=== PATIENT | female | born 1965 | race Asian ===

== ENCOUNTER 2021-10-11 12:18 | Inpatient (IN) | payer MEDICAID, SELFPAY ==
[~2021-10-11] VITALS: Ht 167.6 cm; Wt 68.0 kg
[2021-10-11 12:20] VITALS: BP_SYST 151
--- NOTE | 2021-10-11 12:20 | NUR ---
Placed in room 8 . Placed on poultry processor, blood pressure machine and pulse oximeter. To gown for exam. Side rails up.
--- NOTE | 2021-10-11 12:22 | NUR ---
ER DR. BRENNAN AT THE BEDSIDE EXAMINING PT
--- NOTE | 2021-10-11 12:25 | NUR ---
[facility] DESAT[facility], TACHYCARDIC, FEVER 103 LAST NIGHT, CONTRACTED, G-TUBE IN PLACE, DIAPER IN PLACE, TRACH- BEING BAGGED UPON ARRIVAL. PT IS NONVERBAL, TRACKS WITH EYES AT TIMES. TACHYCARDIC IN 150S UPON ARRIVAL
[2021-10-11] MEDS ORDERED: VANCOMYCIN HCL 1,000 MG in NS 250 ML IV ONE (12:30)
[2021-10-11] MEDS ORDERED: PIPERACILLIN/TAZO 3.375 GM in NS 50 ML IV ONE (12:30)
--- NOTE | 2021-10-11 12:40 | NUR ---
RT Note: 1240 Increased PEEP to [address] Hussein. RN made aware. Pt tolerating change well. SpO2 slightly improved.
--- NOTE | 2021-10-11 12:42 | NUR ---
LAB AT THE BEDSIDE
[2021-10-11 13:04] LABS: BASOPHILS % (AUTO) 0.1 % (0.0-2.0); EOSINOPHILS % (AUTO) 0.1 % (0.0-4.0); HEMATOCRIT 25.8 % (36-48); HEMOGLOBIN 8.7 g/dL (12.0-16.0); LYMPHOCYTES % (AUTO) 9.3 % (20.5-51.5); MEAN CORPUSCULAR HEMOGLOBIN 29 pg (27-31); MEAN CORPUSCULAR HGB CONC 34 % (32-36); MEAN CORPUSCULAR VOLUME 87 fL (79.0-98.0); MONOCYTES # (AUTO) 0.3 K/uL (0.0-1.0); MONOCYTES % (AUTO) 2.6 % (1.7-9.3); NEUTROPHILS # (AUTO) 9.5 K/uL (1.8-7.7); NEUTROPHILS % (AUTO) 87.9 % (40.0-70.0); PLATELET COUNT (AUTO) 382 K/uL (130-430); RED BLOOD CELL COUNT(AUTO) 2.98 MIL/uL (4.2-6.2); RED CELL DISTRIBUTION WIDTH 14.5 % (9.0-15.0); WHITE BLOOD COUNT (AUTO) 10.9 K/uL (4.8-10.8)
--- NOTE | 2021-10-11 13:13 | NUR ---
# 22 gauge angiocath placed to L chest. Use of asceptic technique. Opsite placed over site. Blood return noted. Blood for lab drawn from site. Flushed with 10 cc of normal saline. No evidence of infiltration noted. Patient tolerated well.
[2021-10-11 13:22] LABS: CALCIUM 8.1 mg/dL (8.4-11.0); CREATININE 0.84 mg/dL (0.55-1.30); POTASSIUM 5.1 mmol/L (3.5-5.1)
[2021-10-11 13:27] LABS: ALBUMIN 2.4 g/dL (3.4-4.8); TOTAL BILIRUBIN 0.2 mg/dL (0.0-1.0)
[2021-10-11] MEDS ORDERED: NACL 0.9% 2,500 ML IV ONE (14:00)
--- NOTE | 2021-10-11 14:00 | NUR ---
Medication reconciliation completed with information provided by [facility]. Any prior medication reconciliation on file was reviewed and corrected.
--- NOTE | 2021-10-11 14:17 | NUR ---
# 16 FR Chand catheter with use of sterile technique. Immediate return of 30 cc CLEAR, YELLOW urine noted. Bedside drainage bag placed below level of bladder. Urine sample collected and sent to lab. Pt tolerated procedure WELL. Patient unable to toilet self.
[2021-10-11] MEDS ORDERED: LOSA100T3 GT (14:41)
[2021-10-11] MEDS ORDERED: FURO-150 GT (14:41)
[2021-10-11] MEDS ORDERED: POTA-197 GT (14:41)
[2021-10-11] MEDS ORDERED: GLYC2TAB21 GT (14:41)
[2021-10-11] MEDS ORDERED: ASA81 GT (14:41)
[2021-10-11] MEDS ORDERED: PHEN100O4 GT (14:41)
[2021-10-11] MEDS ORDERED: LEVE1000 GT (14:41)
[2021-10-11] MEDS ORDERED: ASCO500T20 GT (14:41)
[2021-10-11] MEDS ORDERED: MULT-976 GT (14:41)
[2021-10-11] MEDS ORDERED: METO25TA6 GT (14:41)
[2021-10-11] MEDS ORDERED: IPRA3AMP9 INH (14:41)
[2021-10-11] MEDS ORDERED: MELA3TAB69 GT (14:41)
[2021-10-11] MEDS ORDERED: ISOS20TA8 GT (14:41)
[2021-10-11] MEDS ORDERED: FER300L GT (14:41)
[2021-10-11] MEDS ORDERED: HYDR-4038 GT (14:41)
[2021-10-11] MEDS ORDERED: AMIN30LI2 GT (14:41)
[2021-10-11] MEDS ORDERED: NOR10 GT (14:41)
--- NOTE | 2021-10-11 14:46 | NUR ---
ADMISSION ORDERS RECEIVED FROM DR. VARGAS
[2021-10-11 15:09] LABS: BILIRUBIN,URINE NEGATIVE (NEGATIVE); BLOOD, URINE NEGATIVE (NEGATIVE); CLARITY/URINE CLEAR (CLEAR); COLOR,URINE YELLOW (YELLOW); GLUCOSE,URINE NEGATIVE (NEGATIVE); KETONES,URINE NEGATIVE (NEGATIVE); LEUKOCYTE ESTERASE ,URINE NEGATIVE (NEGATIVE); NITRITE, URINE NEGATIVE (NEGATIVE); PH,URINE 5.5 (5.0-8.0); PROTEIN URINE TRACE (NEGATIVE); UROBILINOGEN,URINE 0.2 (0.2-1.0)
[2021-10-11 15:25] LABS: BACTERIA,URINE FEW /HPF (None Seen); MUCUS,URINE None Seen /LPF (None Seen); RBC,URINE NONE SEEN /HPF (0-3); WBC,URINE 0-3 /HPF (0-3)
[2021-10-11 15:55] VITALS: BP_SYST 114
--- NOTE | 2021-10-11 15:56 | NUR ---
CONSULT CALLED CONSULT FOR DR ARTEAGA SPOKE WITH HERBERT [phone] MARES SPOKE WITH SHARON FAXED OVER FACESHEET TO [phone] CONSULT FOR DR PERDUE SPOKE WITH INGE [phone]
--- NOTE | 2021-10-11 17:00 | NUR ---
TYLENOL 500MG GTUBE ADMINISTERED PER DR. ARTEAGA ORDER. EMAR HAS NOT UPDATED AND POPULATED MEDICATIONS FOR CHARTING PURPOSES
[2021-10-11] MEDS ORDERED: ACETAMINOPHEN 500 MG TABLET ONE (17:04)
--- NOTE | 2021-10-11 18:30 | NUR ---
DR. PERDUE EXAMINING PT
--- NOTE | 2021-10-11 18:38 | NUR ---
SW DR. ARTEAGA REGARDING ABG RESULTS, T.O. ORDERS RECEIVED TO DECREASE TIDAL VOLUME TO 700. RT CALLED
[2021-10-11] MEDS ORDERED: LABETALOL 100 MG/ 20ML VIAL IVP PRN (19:00)
--- NOTE | 2021-10-11 19:10 | NUR ---
REPORT GIVEN TO FEROZ BLANTON FOR CONTINUING CARE
--- NOTE | 2021-10-11 20:00 | NUR ---
Pt remains in guarded condition, with Dx of Sepsis
--- NOTE | 2021-10-11 21:00 | NUR ---
Pt diapheretic, with temp at 99.2, IVF and IV antibiotics infusing
--- NOTE | 2021-10-11 21:00 | NUR ---
Pt repositioned for comfort and pressure relief
--- NOTE | 2021-10-11 22:08 | NUR ---
VS: 138/87, 112, 96
--- NOTE | 2021-10-12 | NUR ---
With family at bedside, VSS no s/s of acute distress, No change in vent settings
--- NOTE | 2021-10-12 01:00 | NUR ---
Pt repositioned for comfort and pressure relief
--- NOTE | 2021-10-12 02:00 | NUR ---
Pt responding well to IVF therapy, VSS no s/s of acute distress
--- NOTE | 2021-10-12 04:00 | NUR ---
Provided complete linen change, pericare, RT at bedside for trach care
--- NOTE | 2021-10-12 05:00 | NUR ---
Pt repositioned for comfort and pressure relief
[2021-10-12 05:41] VITALS: BP_SYST 118
--- NOTE | 2021-10-12 06:00 | NUR ---
Repositioned Pt for comfort and pressure relief
[2021-10-12 07:18] LABS: BASOPHILS % (AUTO) 0.1 % (0.0-2.0); HEMATOCRIT 22.9 % (36-48); HEMOGLOBIN 7.5 g/dL (12.0-16.0); LYMPHOCYTES # (AUTO) 1.3 K/uL (1.0-5.5); LYMPHOCYTES % (AUTO) 7.7 % (20.5-51.5); MEAN CORPUSCULAR HEMOGLOBIN 29 pg (27-31); MEAN CORPUSCULAR HGB CONC 33 % (32-36); MEAN CORPUSCULAR VOLUME 88 fL (79.0-98.0); MONOCYTES # (AUTO) 0.5 K/uL (0.0-1.0); MONOCYTES % (AUTO) 2.8 % (1.7-9.3); NEUTROPHILS # (AUTO) 14.6 K/uL (1.8-7.7); NEUTROPHILS % (AUTO) 89.4 % (40.0-70.0); PLATELET COUNT (AUTO) 311 K/uL (130-430); RED CELL DISTRIBUTION WIDTH 14.6 % (9.0-15.0); WHITE BLOOD COUNT (AUTO) 16.3 K/uL (4.8-10.8)
[2021-10-12 07:32] LABS: CALCIUM 7.7 mg/dL (8.4-11.0); CREATININE 0.81 mg/dL (0.55-1.30); POTASSIUM 4.2 mmol/L (3.5-5.1)
[2021-10-12] MEDS ORDERED: IPRATROPIUM/ALBUTEROL SULFATE 3 ML AMPUL.NEB (DUONEB) ONE (07:52)
[2021-10-12 07:54] LABS: THYROID STIMULATING HORMONE 0.51 uIu/mL (0.36-3.74); TOTAL BILIRUBIN 0.2 mg/dL (0.0-1.0)
[2021-10-12 07:55] VITALS: BP_SYST 159
--- NOTE | 2021-10-12 08:04 | NUR ---
56 years old female intubated/trach dependent biba for resp distress/hypoxia, awaiting for icu bed remains tachy, tachypneic will continue to monitor.
[2021-10-12] MEDS: NACL 0.9% 1,000 ML IV SCH ×3 (09:14→23:56)
[2021-10-12] MEDS: VANCOMYCIN HCL 750 MG in NS 250 ML IV SCH ×2 (09:14→21:42)
[2021-10-12] MEDS: DEXAMETHASONE SOD PHOSPHATE 10 MG/ML VIAL IVP SCH ×2 (09:15→21:43)
[2021-10-12] MEDS: PANTOPRAZOLE SODIUM 40 MG/VIAL (PROTONIX) IVP SCH (09:16)
[2021-10-12] MEDS: ENOXAPARIN SODIUM 60 MG/0.6 ML SYRINGE SUBCUT SCH (09:17)
[2021-10-12] MEDS: ACETAMINOPHEN 500 MG TABLET GT PRN ×2 (09:19→17:53)
[2021-10-12] MEDS ORDERED: NACL 0.9% 1,000 ML IV ONE (09:45)
[2021-10-12] MEDS ORDERED: KETOROLAC TROMETHAMINE 15 MG VIAL IVP ONE (09:45)
[2021-10-12] MEDS ORDERED: ACETAMINOPHEN 650 MG SUPP.RECT RC PRN (09:45)
[2021-10-12] MEDS: PIPERACILLIN/TAZO 3.375/DEX-IS 50 ML IV SCH ×3 (10:07→22:00)
--- NOTE | 2021-10-12 10:33 | NUR ---
patient tachypneic 47, RT notified, pulmonary paged.
--- NOTE | 2021-10-12 10:43 | NUR ---
talked to Dr Lima new order ativan 1mg IVP every 2 hrs PRN.
[2021-10-12] MEDS: LORazepam 2 MG/ML VIAL IVP PRN ×2 (11:12→17:33)
[2021-10-12 11:23] VITALS: BP_SYST 140
[2021-10-12] MEDS: IPRATROPIUM/ALBUTEROL SULFATE 3 ML AMPUL.NEB (DUONEB) INH SCH ×4 (11:25→23:54)
--- NOTE | 2021-10-12 11:25 | NUR ---
RT NOTE: 1125 decreased FiO2 to 90%. Pt tolerating change well. SpO2 is above 95%. Will continue to wean FiO2 as pt tolerated.
--- NOTE | 2021-10-12 12:46 | NUR ---
PATIENT RESTING KATERIN, RR RATE IMPROVED AFTER IV ATIVAN, 28-36, WILL CONTINUE TO MONITOR.
[2021-10-12] MEDS ORDERED: IOHEXOL 350 mgI/mL, 150 ML INFUS..BTL IV ONE (14:21)
[2021-10-12 14:50] VITALS: BP_SYST 146
--- NOTE | 2021-10-12 14:55 | NUR ---
PATIENT RETURNS TO ROOM FROM CT IN STABLE CONDITION.
--- NOTE | 2021-10-12 17:46 | NUR ---
patient resting, tachypneic in 40's, ativan 1mg ivp given will continue to monitor.
--- NOTE | 2021-10-12 19:14 | NUR ---
report endorsed to nurse Hernández all questions answered.
[2021-10-12 19:54] VITALS: BP_SYST 138
[2021-10-12] MEDS ORDERED: DOXYCYCLINE HYCLATE 100 MG CAPSULE ONE (20:28)
[2021-10-12] MEDS ORDERED: VANCOMYCIN HCL 1000 MG/VIAL IV ONE (20:53)
--- NOTE | 2021-10-12 21:41 | NUR ---
TEMP 102.9. VORB FROM DR. Cristal MARES FOR 600 MG MOTRIN X1
[2021-10-12] MEDS: DOXYCYCLINE HYCLATE 100 MG CAPSULE PO SCH (21:43)
[2021-10-12] MEDS ORDERED: IBUPROFEN 600 MG TABLET GT ONE (21:45)
--- NOTE | 2021-10-12 22:12 | NUR ---
FAMILY UPDATED ON POC
[2021-10-12 23:00] VITALS: BP_SYST 143
[2021-10-13] VITALS (9 sets, daily range): BP systolic 144–172
--- NOTE | 2021-10-13 02:32 | NUR ---
PT MEDICATED WITH TYLENOL ORDERED FOR TEMP 102.9
[2021-10-13] MEDS: IPRATROPIUM/ALBUTEROL SULFATE 3 ML AMPUL.NEB (DUONEB) INH SCH ×6 (06:27→23:00)
--- NOTE | 2021-10-13 07:27 | NUR ---
REPORT GIVEN TO DAY SHIFT RN
--- NOTE | 2021-10-13 07:42 | NUR ---
56 years old female vent dependent with sob/resp distress,febrile condition improved, non verbal, unable to follow simple commands, contracted skin intact will continue to monitor.
[2021-10-13] MEDS: NACL 0.9% 1,000 ML IV SCH ×2 (09:54→16:30)
[2021-10-13] MEDS: VANCOMYCIN HCL 750 MG in NS 250 ML IV SCH ×2 (09:57→20:56)
[2021-10-13] MEDS: PIPERACILLIN/TAZO 3.375/DEX-IS 50 ML IV SCH ×3 (10:00→22:35)
[2021-10-13] MEDS: DEXAMETHASONE SOD PHOSPHATE 10 MG/ML VIAL IVP SCH (10:03)
[2021-10-13] MEDS: PANTOPRAZOLE SODIUM 40 MG/VIAL (PROTONIX) IVP SCH (10:05)
[2021-10-13] MEDS: DOXYCYCLINE HYCLATE 100 MG CAPSULE PO SCH (10:06)
[2021-10-13] MEDS: ENOXAPARIN SODIUM 60 MG/0.6 ML SYRINGE SUBCUT SCH (10:07)
--- NOTE | 2021-10-13 12:09 | NUR ---
patient condition unchanged vital stable, repositioned, skin care given, mouth care provided.
[2021-10-13 15:10] LABS: BASOPHILS % (AUTO) 0.1 % (0.0-2.0); LYMPHOCYTES # (AUTO) 0.5 K/uL (1.0-5.5); LYMPHOCYTES % (AUTO) 4.6 % (20.5-51.5); MEAN CORPUSCULAR HEMOGLOBIN 29 pg (27-31); MEAN CORPUSCULAR HGB CONC 35 % (32-36); MEAN CORPUSCULAR VOLUME 85 fL (79.0-98.0); MONOCYTES # (AUTO) 0.2 K/uL (0.0-1.0); MONOCYTES % (AUTO) 1.5 % (1.7-9.3); NEUTROPHILS # (AUTO) 10.4 K/uL (1.8-7.7); NEUTROPHILS % (AUTO) 93.8 % (40.0-70.0); PLATELET COUNT (AUTO) 344 K/uL (130-430); RED BLOOD CELL COUNT(AUTO) 2.31 MIL/uL (4.2-6.2); RED CELL DISTRIBUTION WIDTH 14.3 % (9.0-15.0)
[2021-10-13 15:35] LABS: HEMATOCRIT 19.6 % (36-48); HEMOGLOBIN 6.8 g/dL (12.0-16.0)
[2021-10-13 15:38] LABS: ALBUMIN 1.7 g/dL (3.4-4.8); CALCIUM 7.8 mg/dL (8.4-11.0); CREATININE 0.91 mg/dL (0.55-1.30); POTASSIUM 3.2 mmol/L (3.5-5.1); TOTAL BILIRUBIN 0.3 mg/dL (0.0-1.0)
--- NOTE | 2021-10-13 15:49 | NUR ---
patient with critical lab Dr Solis notified new order 1/2 normal saline at 150ml/hr, type and cross and transfuse 2 units packed red blood cell.
[2021-10-13] MEDS: 0.45% NACL 1,000 ML IV SCH ×3 (17:30→22:34)
--- NOTE | 2021-10-13 18:01 | NUR ---
patient reassess no acute changes, talked to brother Yuriy Rogers for blood consent.
--- NOTE | 2021-10-13 19:25 | NUR ---
Patient will be admitted to care of Tania. Admitted to unit. Will go to room . Complete and up to date summary report printed. SBAR report to be given at bedside with opportunity for questions.
--- NOTE | 2021-10-13 22:30 | NUR ---
Patient confused, aphasic on vent via trach set @ PC 15, Rate 24 F1O2 100% w/ C2Eim=[address] on the scope w/ T=101.9 deg. F. Tylenol adm via GT; cooling measures initiated. Admission history and assessment done. Repositioned for comfort. Contracted an. Upper & Lower extremities. Will cont to monitor.
[2021-10-13] MEDS: ACETAMINOPHEN 500 MG TABLET GT PRN (23:05)
[2021-10-14] VITALS (26 sets, daily range): BP systolic 126–166
[2021-10-14] MEDS: NACL 0.9% 1,000 ML IV SCH (00:30)
--- NOTE | 2021-10-14 00:30 | NUR ---
Dr. Solis made aware of K=3.1 and fever w/ new orders noted. Tylenol per GT & K+ suplementation ordered by ; noted and carried out. made aware that unable to start transfusing PRBC unit 1 until pt. afebrile. Will cont. to monitor.
[2021-10-14] MEDS ORDERED: POTASSIUM CHLORIDE 40 MEQ in D5W 250 ML IV ONE (01:15)
[2021-10-14] MEDS ORDERED: DOXYCYCLINE HYCLATE 100 MG CAPSULE ONE ×2 (01:29→21:38)
[2021-10-14] MEDS: DOXYCYCLINE HYCLATE 100 MG CAPSULE PO SCH ×3 (02:12→21:52)
[2021-10-14] MEDS ORDERED: POTASSIUM CHLORIDE 20 MEQ TAB.PRT.SR PO ONE (02:15)
[2021-10-14] MEDS ORDERED: POTASSIUM CHLORIDE 20 MEQ TAB.PRT.SR ONE (02:16)
[2021-10-14] MEDS: ACETAMINOPHEN 650 MG/20.3 ML UDC GT PRN ×3 (04:05→17:22)
[2021-10-14] MEDS: PIPERACILLIN/TAZO 3.375/DEX-IS 50 ML IV SCH ×4 (04:06→22:00)
[2021-10-14] MEDS: IPRATROPIUM/ALBUTEROL SULFATE 3 ML AMPUL.NEB (DUONEB) INH SCH ×4 (04:20→23:00)
--- NOTE | 2021-10-14 06:45 | NUR ---
RAPID RESPONSE CALLED BY RN. PT'S HR 150 SPO2 IN 50s RR IN 40s. IMMEDIATELY BAGGED PATIENT. PT'S SPO2 INCREASED TO 80s. ABG OBTAINED AND RESULTS GIVEN TO MD ARTEAGA BY RN. NO NEW ORDERS FOR RESPIRATORY. RR INCREASED TO 24 FOR SOB. PT ON 100% FIO2 AND PEEP OF 10. MD ARTEAGA AWARE OF PATIENT'S CONDITION. WILL CONTINUE TO MONITOR.
[2021-10-14] MEDS ORDERED: FUROSEMIDE 40 MG/4 ML VIAL ONE (06:51)
[2021-10-14] MEDS ORDERED: FUROSEMIDE 40 MG/4 ML VIAL IVP ONE (07:00)
[2021-10-14] MEDS: LORazepam 2 MG/ML VIAL IVP PRN ×3 (07:32→17:34)
[2021-10-14] MEDS ORDERED: SODIUM BICARBONATE 8.4% JECT 50 MEQ/50 ML SYRINGE IVP ONE (07:45)
[2021-10-14 07:51] LABS: BASOPHILS # (AUTO) 0.1 K/uL (0.0-0.2); BASOPHILS % (AUTO) 0.3 % (0.0-2.0); HEMATOCRIT 26.2 % (36-48); HEMOGLOBIN 8.9 g/dL (12.0-16.0); LYMPHOCYTES # (AUTO) 1.9 K/uL (1.0-5.5); LYMPHOCYTES % (AUTO) 8.7 % (20.5-51.5); MEAN CORPUSCULAR HEMOGLOBIN 29 pg (27-31); MEAN CORPUSCULAR HGB CONC 34 % (32-36); MEAN CORPUSCULAR VOLUME 85 fL (79.0-98.0); MONOCYTES # (AUTO) 0.3 K/uL (0.0-1.0); MONOCYTES % (AUTO) 1.6 % (1.7-9.3); NEUTROPHILS # (AUTO) 19.1 K/uL (1.8-7.7); NEUTROPHILS % (AUTO) 89.4 % (40.0-70.0); PLATELET COUNT (AUTO) 422 K/uL (130-430); RED CELL DISTRIBUTION WIDTH 15.2 % (9.0-15.0); WHITE BLOOD COUNT (AUTO) 21.4 K/uL (4.8-10.8)
--- NOTE | 2021-10-14 08:00 | NUR ---
INITIAL NOTES RECEIVED REPORT FROM NIGHT NURSE AT BEDSIDE, ER DOCTOR AND RESPIRATORY THERAPIST AT BEDSIDE ASSESSING PATIENT. PATIENT 02 SAT AT 86% ON 100% FIO2, PATIENT HAS TRACH TO VENT. AFEBRILE, GT CLAMPED, IVL AT THIS TIME. MAINTAIN ON CONTACT/DROPLET ISOLATION FOR PUI STATUS. WILL MONITOR.
--- NOTE | 2021-10-14 08:00 | NUR ---
After transfusion of 1st unit of blood, @ 0640, O2Sat noted to be in the 50s & the patient was cyanotic and obtunded w/ VI=982b. GOLF CLUB MANAGER called and patient bagged to 82% by RT. Dr. Solis contacted and made aware of patient condition and ordered Lasix 40 mg IVP. ABG done. Results relayed to Dr. Lima w/ 2 amps NaHCO3, for ph=7.1. Chest Xray done; film read by ER MD. Stat labs drawn w/ results pending. Ativan adm. IVP x [address] on the scope in the 120s to 130s w/ [id number] when report given to Tiffany Woodard RN. Care endorsed.
[2021-10-14 08:23] LABS: PHOSPHORUS 3.8 mg/dL (2.7-4.5)
[2021-10-14 08:28] LABS: ALBUMIN 1.7 g/dL (3.4-4.8); CALCIUM 7.7 mg/dL (8.4-11.0); CREATININE 1.04 mg/dL (0.55-1.30); POTASSIUM 3.5 mmol/L (3.5-5.1); TOTAL BILIRUBIN 0.6 mg/dL (0.0-1.0)
[2021-10-14] MEDS: PANTOPRAZOLE SODIUM 40 MG/VIAL (PROTONIX) IVP SCH (09:22)
[2021-10-14] MEDS: DEXAMETHASONE SOD PHOSPHATE 10 MG/ML VIAL IVP SCH (09:22)
[2021-10-14] MEDS: VANCOMYCIN HCL 750 MG in NS 250 ML IV SCH ×2 (09:23→21:52)
--- NOTE | 2021-10-14 10:07 | NUR ---
Dietitian Recommendations *Recommend: initiate EN via NGT. Vital AF 1.2 at 60ml/hr (goal rate). FABY, RD
--- NOTE | 2021-10-14 11:00 | NUR ---
NOTES PATIENT STABLE SO FAR, O2 SAT AT 95%, NO DISTRESS. WILL MONITOR.
[2021-10-14] MEDS: ENOXAPARIN SODIUM 60 MG/0.6 ML SYRINGE SUBCUT SCH (11:02)
[2021-10-14 12:35] LABS: C-REACTIVE PROTEIN QUANT 16.7 mg/dL (0-0.5)
--- NOTE | 2021-10-14 13:34 | NUR ---
TEMP -Has low grade fever of 99.9. tylenol given
[2021-10-14] MEDS: 0.45% NACL 1,000 ML IV SCH ×2 (14:14→20:10)
--- NOTE | 2021-10-14 17:38 | NUR ---
MD ROUNDS/FEEDING SEEN BY DR. VARGAS AND AWARE OF LABS. STATED ALSO TO KEEP NPO AND START FEEDING TOMORROW.
[2021-10-15] VITALS (23 sets, daily range): BP systolic 96–176
[2021-10-15] MEDS: LORazepam 2 MG/ML VIAL IVP PRN ×2 (01:37→03:46)
[2021-10-15] MEDS: IPRATROPIUM/ALBUTEROL SULFATE 3 ML AMPUL.NEB (DUONEB) INH SCH ×2 (02:31→23:02)
[2021-10-15] MEDS: PIPERACILLIN/TAZO 3.375/DEX-IS 50 ML IV SCH ×3 (04:00→16:17)
--- NOTE | 2021-10-15 04:58 | NUR ---
Nutrition Update Nathan Scale 12 noted. Pt admitted for Respiratory failure, Sepsis Diet: no diet order BMI: 24.2 kg/m2 RD to follow per nutrition care standards.
[2021-10-15 06:51] LABS: BASOPHILS % (AUTO) 0.3 % (0.0-2.0); HEMATOCRIT 29.8 % (36-48); HEMOGLOBIN 9.8 g/dL (12.0-16.0); LYMPHOCYTES # (AUTO) 1.1 K/uL (1.0-5.5); LYMPHOCYTES % (AUTO) 7.4 % (20.5-51.5); MEAN CORPUSCULAR HEMOGLOBIN 29 pg (27-31); MEAN CORPUSCULAR HGB CONC 33 % (32-36); MEAN CORPUSCULAR VOLUME 87 fL (79.0-98.0); MONOCYTES # (AUTO) 0.3 K/uL (0.0-1.0); MONOCYTES % (AUTO) 1.9 % (1.7-9.3); NEUTROPHILS # (AUTO) 13.2 K/uL (1.8-7.7); NEUTROPHILS % (AUTO) 90.4 % (40.0-70.0); PLATELET COUNT (AUTO) 456 K/uL (130-430); RED BLOOD CELL COUNT(AUTO) 3.41 MIL/uL (4.2-6.2); RED CELL DISTRIBUTION WIDTH 15.8 % (9.0-15.0); WHITE BLOOD COUNT (AUTO) 14.6 K/uL (4.8-10.8)
[2021-10-15] MEDS: 0.45% NACL 1,000 ML IV SCH ×3 (07:00→16:17)
[2021-10-15 07:08] LABS: ALBUMIN 1.7 g/dL (3.4-4.8); CALCIUM 7.8 mg/dL (8.4-11.0); CREATININE 1.13 mg/dL (0.55-1.30); POTASSIUM 3.8 mmol/L (3.5-5.1); TOTAL BILIRUBIN 0.2 mg/dL (0.0-1.0)
--- NOTE | 2021-10-15 07:15 | NUR ---
found pt had difficulty breathing even though on a vent via trach hr in the 100's rr in 40's - 50's pt appears air starving made charge nurse aware called dr polanco was told pt was in a coma state no new orders given
[2021-10-15 07:44] LABS: C-REACTIVE PROTEIN QUANT 17.2 mg/dL (0-0.5)
--- NOTE | 2021-10-15 08:00 | NUR ---
Spoke with Dr. Lima regarding pts resp distress, RR 50's 02 sats 80's and air hunger. Orders left for diprivan but he declined to order any other sedation. Bedside RN made aware.
[2021-10-15] MEDS: VANCOMYCIN HCL 750 MG in NS 250 ML IV SCH ×2 (10:06→22:02)
[2021-10-15] MEDS: ENOXAPARIN SODIUM 60 MG/0.6 ML SYRINGE SUBCUT SCH (10:10)
[2021-10-15] MEDS: PANTOPRAZOLE SODIUM 40 MG/VIAL (PROTONIX) IVP SCH (10:11)
[2021-10-15] MEDS: DEXAMETHASONE SOD PHOSPHATE 10 MG/ML VIAL IVP SCH (10:11)
[2021-10-15] MEDS: DOXYCYCLINE HYCLATE 100 MG CAPSULE PO SCH ×2 (10:12→21:00)
--- NOTE | 2021-10-15 11:00 | NUR ---
Spoke with Dr. Lima again regarding abg results. He requested to speak with RT and did so. I also spoke with him again regarding sedation. He ordered precedex in addition to the diprivan. Pharmacy does not recommend both.
--- NOTE | 2021-10-15 14:00 | NUR ---
dr polanco made of aware of abg's drawn at 1339 no new orders noted pt was placed on Diprivan drip earlier with some effect condition improved with Ativan ivp prn
[2021-10-15] MEDS: PROPOFOL DRIP 100 ML IV PRN (22:12)
[2021-10-16] VITALS (23 sets, daily range): BP systolic 109–139
[2021-10-16] MEDS: PIPERACILLIN/TAZO 3.375/DEX-IS 50 ML IV SCH ×2 (00:04→05:06)
[2021-10-16] MEDS: 0.45% NACL 1,000 ML IV SCH ×8 (00:07→21:00)
[2021-10-16] MEDS: IPRATROPIUM/ALBUTEROL SULFATE 3 ML AMPUL.NEB (DUONEB) INH SCH ×4 (03:36→16:30)
[2021-10-16] MEDS: PROPOFOL DRIP 100 ML IV PRN ×5 (05:13→22:42)
--- NOTE | 2021-10-16 07:30 | NUR ---
PT GUSTING FOR AIR RT CALLED. OFFGOING NURSE STATED PT HAS BEEN LIKE THAT ALL SHIFT ASKED IF SHE CALLED DR DEY STATED NO BECAUSE RT TOLD HER HE WAS AWARED HE PLACED A SMALLER TRACH TUBE IN AT THE BEGINNING OF THE SHIFT. PT PLACED IN A 90 DEGREE POSITION RT AT BESIDE AWAITING FOR ABG'S RESULT HR IN THE 80 RR IN THE 30'S WAS GIVING ATIVAN 1MG IIVP COMFORT AND SAFTEY MAINTAINED CHARGE NURSE MADE AWARE Addendum: 10/16/21 at 1104 by [employer] tailor fitter WRONG PT
[2021-10-16 08:26] LABS: BASOPHILS % (AUTO) 0.2 % (0.0-2.0); EOSINOPHILS % (AUTO) 0.1 % (0.0-4.0); HEMOGLOBIN 7.7 g/dL (12.0-16.0); LYMPHOCYTES # (AUTO) 0.4 K/uL (1.0-5.5); LYMPHOCYTES % (AUTO) 4.1 % (20.5-51.5); MEAN CORPUSCULAR HEMOGLOBIN 29 pg (27-31); MEAN CORPUSCULAR HGB CONC 33 % (32-36); MEAN CORPUSCULAR VOLUME 86 fL (79.0-98.0); MONOCYTES # (AUTO) 0.2 K/uL (0.0-1.0); MONOCYTES % (AUTO) 2.3 % (1.7-9.3); NEUTROPHILS # (AUTO) 9.6 K/uL (1.8-7.7); NEUTROPHILS % (AUTO) 93.3 % (40.0-70.0); PLATELET COUNT (AUTO) 362 K/uL (130-430); RED BLOOD CELL COUNT(AUTO) 2.68 MIL/uL (4.2-6.2); RED CELL DISTRIBUTION WIDTH 15.2 % (9.0-15.0); WHITE BLOOD COUNT (AUTO) 10.2 K/uL (4.8-10.8)
[2021-10-16 08:34] LABS: CALCIUM 7.3 mg/dL (8.4-11.0); CREATININE 1.81 mg/dL (0.55-1.30); POTASSIUM 3.1 mmol/L (3.5-5.1)
[2021-10-16] MEDS: PANTOPRAZOLE SODIUM 40 MG/VIAL (PROTONIX) IVP SCH (08:58)
[2021-10-16] MEDS: DEXAMETHASONE SOD PHOSPHATE 10 MG/ML VIAL IVP SCH (08:58)
[2021-10-16] MEDS: ENOXAPARIN SODIUM 60 MG/0.6 ML SYRINGE SUBCUT SCH (09:01)
[2021-10-16] MEDS: cefTRIAXone 1 GM in D5W 50 ML IV SCH (09:02)
--- NOTE | 2021-10-16 09:30 | NUR ---
LAB CALLED PT IS COVID [address] POSIT[address] PER CHARGE NURSE[address] VARGAS WAS NOTIFIED
--- NOTE | 2021-10-16 10:00 | NUR ---
DR ARTEAGA CALLED TIMES THREE NO RETURN CALL R/T ABNOR BLOOD GAS CHARGE NURSE IS AWARE
--- NOTE | 2021-10-16 12:25 | NUR ---
DR ARTEAGA WAS MADE AWARE OF PT ABNORM ABG'S AND PRESENT CONDITION NO ACUTE DISTRESS NOTED REMAINS ON DIPRIVAN DRIP ORDER NO NEW ORDERS NOTED
[2021-10-16] MEDS: LORazepam 2 MG/ML VIAL IVP PRN (15:00)
--- NOTE | 2021-10-16 18:00 | NUR ---
PT HAD A LGE WATERY DK GREEN STOOL INCONT CARE GIVEN PLEASE NOTE PT DOES HAVE A DECUB ON HER RIGHT ANKLE WHICH WAS PRESENT DURING ADMISSION AWAITING FOR AN ORDER FOR TREATMENT NO DRAINAGE NOTED BUT APPLIED A 4X4 DRESSING
--- NOTE | 2021-10-16 19:04 | NUR ---
REPORT GIVEN TO INCOMING NURSE ALL QUESTIONS ANSWERED PT CONDITION APPEARS STABLE AT THIS TIME
[2021-10-17] VITALS (20 sets, daily range): BP systolic 100–147
[2021-10-17] MEDS ORDERED: POTASSIUM CHLORIDE 20 MEQ/PKT PACKET PO ONE (02:00)
[2021-10-17] MEDS: PROPOFOL DRIP 100 ML IV PRN ×2 (02:52→07:50)
[2021-10-17 07:48] LABS: BASOPHILS % (AUTO) 0.2 % (0.0-2.0); EOSINOPHILS % (AUTO) 0.1 % (0.0-4.0); HEMATOCRIT 22.9 % (36-48); HEMOGLOBIN 7.5 g/dL (12.0-16.0); LYMPHOCYTES # (AUTO) 0.6 K/uL (1.0-5.5); LYMPHOCYTES % (AUTO) 4.5 % (20.5-51.5); MEAN CORPUSCULAR HEMOGLOBIN 28 pg (27-31); MEAN CORPUSCULAR HGB CONC 33 % (32-36); MEAN CORPUSCULAR VOLUME 86 fL (79.0-98.0); MONOCYTES # (AUTO) 0.4 K/uL (0.0-1.0); MONOCYTES % (AUTO) 2.8 % (1.7-9.3); NEUTROPHILS # (AUTO) 12.5 K/uL (1.8-7.7); NEUTROPHILS % (AUTO) 92.4 % (40.0-70.0); PLATELET COUNT (AUTO) 373 K/uL (130-430); RED BLOOD CELL COUNT(AUTO) 2.65 MIL/uL (4.2-6.2); RED CELL DISTRIBUTION WIDTH 14.9 % (9.0-15.0); WHITE BLOOD COUNT (AUTO) 13.5 K/uL (4.8-10.8)
[2021-10-17] MEDS: LORazepam 2 MG/ML VIAL IVP PRN (07:55)
[2021-10-17 08:03] LABS: ALBUMIN 1.5 g/dL (3.4-4.8); CALCIUM 7.5 mg/dL (8.4-11.0); CREATININE 1.99 mg/dL (0.55-1.30); TOTAL BILIRUBIN 0.4 mg/dL (0.0-1.0)
[2021-10-17] MEDS ORDERED: KCL 40 mEq in 100 mL (PREMIX) 100 ML IV ONE (08:45)
[2021-10-17] MEDS ORDERED: NS 500 ML IV ONE (08:45)
[2021-10-17] MEDS: cefTRIAXone 1 GM in D5W 50 ML IV SCH (08:53)
[2021-10-17] MEDS: PANTOPRAZOLE SODIUM 40 MG/VIAL (PROTONIX) IVP SCH (08:54)
[2021-10-17] MEDS: DEXAMETHASONE SOD PHOSPHATE 10 MG/ML VIAL IVP SCH (08:54)
[2021-10-17] MEDS: ENOXAPARIN SODIUM 60 MG/0.6 ML SYRINGE SUBCUT SCH (08:56)
--- NOTE | 2021-10-17 09:00 | NUR ---
K LEVEL 3 DR WAS CALLED NEW ORDER REC'D 40 MEQ KCL IV
[2021-10-17] MEDS: IPRATROPIUM/ALBUTEROL SULFATE 3 ML AMPUL.NEB (DUONEB) INH SCH ×5 (09:10→23:54)
--- NOTE | 2021-10-17 11:00 | NUR ---
RT NOTE: 1100 Increased PEEp to [address] Lima's order. Will continue to monitor pt. Addendum: 10/17/21 at 1157 by Karina Huerta RT Amended: Links added.
--- NOTE | 2021-10-17 11:00 | NUR ---
PEEP LEVEL CHANGE TO [address] ORDER WILL CONT TO MONITOR PT
[2021-10-17] MEDS: 0.45% NACL 1,000 ML IV SCH (13:30)
--- NOTE | 2021-10-17 16:30 | NUR ---
WOUND EVALUATION: Late note for 1630 secondary to patient care. Wound Consult received from Dr. Solis. Thank you, Dr. Solis, for the consult. Patient received in bed, awake, nonresponsive to verbal commands. Patient is unable to turn independently. Nathan Score is an 8. Past Medical History: CHF, Hypertension, history of strokes, Tracheostomy with mechanical ventilation, history of possible Anoxic Encephalopathy. Recent Labs: WBC 13.5, RBC 2.65, hemoglobin 7.5, hematocrit 22.9, sodium 151, potassium 3.0, chloride 117, BUN 46, creatinine 1.99, GFR 27, glucose 141, calcium 7.5, AST 46, C-reactive protein 17.2, serum total protein 5.0, albumin 1.5, D-dimer 1770. Microbiology: Blood culture results x2 negative. Urine culture results negative. MRSA screen results in progress. Endotracheal sputum culture results positive for Proteus Mirabilis. Intrinsic factors that delay wound healing: Anoxic Encephalopathy, severe Hypoalbuminemia, Hyperglycemia. Extrinsic factors that delay wound healing: Immobility. Wound Assessment: 1. Right Buttock: sDTI, present on admission. Wound bed has 80% dark discolored tissue, 5% red tissue, 5% pink tissue. No odor, no drainage. Nahum-wound intact. Measures 4.0 cm x 3.7 cm. Recommend: Cleanse wound with normal saline. Apply Calmoseptine cream to nahum-wound. Apply Venelex ointment to red and pink wound bed areas only, not dark discolored areas. Cover with foam dressing. Perform wound care daily, and as needed for dressing soiling or dislodgement. 2. Intergluteal Sulcus: Intertrigo with erythema and MASD. Erythema with moisture associated skin damage, with scant sanguineous drainage. No odor. Site measures 1.5 cm x 0.4 cm. Recommend: Cleanse site with normal saline. Apply Calmoseptine cream to site. Cover with foam dressing, pushing dressing into sulcus area with fingers, then spreading dressing out along sacral area while holding fingers in place. Perform site care daily, and as needed for dressing soiling or dislodgement. 3. Right Lateral Malleolus: Unstageable pressure ulcer. Wound bed has 90% yellow tissue, 10% pink tissue. No odor, no drainage. Periwound intact. Wound measures 2.3 cm x 0.3 cm. Recommend: Cleanse wound with normal saline. Apply Calmoseptine cream to nahum-wound. Apply Venelex ointment to wound bed. Cover with foam dressing. Perform wound care daily, and as needed for dressing soiling or dislodgement. 4. Left Lateral Foot near 5th Metatarsal Head: Area of dark discoloration with brown scaly skin, present on admission, possibly old ulcer site of unknown stage. Recommend: Wyocena site with Betadine. Allow to air dry. Cover site with foam dressing for protection. Perform site care daily, and as needed for dressing soiling or dislodgment. Also recommend: Reposition patient side to side every 2 hours with one pillow underneath left pelvis and 1 pillow underneath right pelvis (facilitate turning by placing 1 additional pillow underneath left pelvis for 2 hours, then rotate pillow underneath right pelvis for 2 hours, repeating every 2 hours. Off-load pressure areas with pillows for pressure re-distribution. Offload, elevate and float bilateral heels with pillows. Perform skin care and monitor skin integrity Q shift. Use Calmoseptine cream on buttocks and other moisture susceptible areas QID and as needed for soiling. Place patient on a low air-loss mattress.
[2021-10-17] MEDS ORDERED: MENTHOL/ZINC OXIDE 113 GM OINT. TP PRN (18:30)
[2021-10-18] VITALS (22 sets, daily range): BP systolic 94–165
[2021-10-18] MEDS: LORazepam 2 MG/ML VIAL IVP PRN ×3 (02:49→12:08)
[2021-10-18] MEDS: IPRATROPIUM/ALBUTEROL SULFATE 3 ML AMPUL.NEB (DUONEB) INH SCH ×6 (05:12→23:00)
[2021-10-18] MEDS: PROPOFOL DRIP 100 ML IV PRN (08:19)
[2021-10-18] MEDS: cefTRIAXone 1 GM in D5W 50 ML IV SCH (09:18)
[2021-10-18] MEDS: DEXAMETHASONE SOD PHOSPHATE 10 MG/ML VIAL IVP SCH (09:19)
[2021-10-18] MEDS: PANTOPRAZOLE SODIUM 40 MG/VIAL (PROTONIX) IVP SCH (09:19)
[2021-10-18] MEDS: BALSAM PERU/CASTOR OIL 56.7 GM OINT...G. TP SCH (09:20)
[2021-10-18] MEDS: ENOXAPARIN SODIUM 60 MG/0.6 ML SYRINGE SUBCUT SCH (09:20)
--- NOTE | 2021-10-18 09:30 | NUR ---
CALL DR ARTEAGA R/T PT ABNORMAL BLOOD GASES NO NEW ORDERS NOTED ALSO PT'S SAT WAS DOWN IN THE 80'S RT NOTIFIED ALSO
[2021-10-18] MEDS: ACETAMINOPHEN 650 MG/20.3 ML UDC GT PRN (10:39)
--- NOTE | 2021-10-18 11:04 | NUR ---
Nutrition F/U Admitting Diagnosis Respiratory Failure, Sepsis Reviewed Pertinent Medical/Surgical Hx Medical Record Medical History Comment: Bilateral Infiltrate consistent w/ COVID pneumonia, Leukocytosis, CHF, HTN, Hx of stroke, Trach w/ mechanical vent, Anoxic encephalopathy per MD notes. SARS-CoV-2 Ag (Rapid) Negative 10/11, (PCR) Positive 10/12; unvaccinated Subjective Information Late note d/t high RD load yesterday. RD rounded to ICU and spoke w/ pt's primary RN outside of pt's room (129) yesterday afternoon. She reported that pt has a GT and is not yet receiving TF as they are awaiting RD rec for TF. RD did not receive any such consult within the past few days. RD confirmed this w/ dry pan charger today who stated that feeding has not yet been started d/t same reasoning. RD relayed TF rec; dry pan charger acknowledged and would notify the current pt's primary RN. Per EMR review, pt is intubated/sedated; no BM noted since 10/14; Nathan scale: 8 -- no PIs noted; 2+ pitting bilat generalized edema noted; GT present. Pt is not yet meeting nutritional needs, but is receiving calories from fat from propofol infusion. Current Diet Order/Nutrition Support N/A Patient/Significant Other Unable To Verbalize Education Provided Not Indicated Pertinent Medications decadron, lovenox, protonix IV Pertinent Labs Na 151 H, K 3 L, BG 141 H, BUN 46 H, CRE 1.99 H, AST 46 H, ALT 51 WNL, WBC 13.5 H Height (Feet) 5 feet Height (Inches) 6.00 inches Weight (Pounds) 150 pounds -- stable since 10/14 Weight (Calculated Kilograms) 68.946916 kilograms Patient Weight 68.039 kg Body Mass Index 24.21 kg/m2 %IBW 115 [place]/Adjusted Body Weight 130#/ 59kg Difficulty With: Swallowing Skin Integrity Comment: Nathan scale: none documented. Current % PO N/A, on vent support. NEW Estimated Energy Expenditure (kcals/day) 1883 (PSU for vent support, critical illness; Ve: 19; Tmax: 37.6'C) Estimated Protein Required (g/day) 102-136 (1.5-2 gm/kg CBW for sepsis) Estimated Fluid Required (l/day) per MD (CHF) Problem/Etiology/Signs/Symptoms Inadequate nutrient intake r/t lack of nutrition support AEB pending initiation of EN support, on vent support. *ongoing Increased nutrient needs r/t metabolic demands AEB estimated calories and protein for sepsis. *ongoing Expected Outcomes/Goals Monitor provision of EN support, tolerance and intake w/ goal of pt meeting more than 75% of estimated nutritional needs, labs trending WNL, normal GI function, skin integrity/wt maintenance. Dietitian Recommendations * Vital AF 1.2 at 45 ml/hr (goal rate), Prosource daily via NGT Provides: 1895 kcal/day, 96 gm protein/day, and 876 ml free water/day Meets: 101% of estimated caloric needs and 94% of lower end of estimated protein needs Follow Up High Risk: F/U in 2-3 days
--- NOTE | 2021-10-18 11:18 | NUR ---
Dietitian Recommendations * Vital AF 1.2 at 45 ml/hr (goal rate), Prosource daily via NGT Provides: 1895 kcal/day, 96 gm protein/day, and 876 ml free water/day Meets: 101% of estimated caloric needs and 94% of lower end of estimated protein needs LP, RD Please refer Nutrition F/U for details.
--- NOTE | 2021-10-18 11:30 | NUR ---
PT MAINTAINED IN A 90 DEGREE POSITION WITH EFFECT O2 SAT IN THE 90'S AND IS RECEIVING DIPRIVAN DRIP AND ATIVAN Q 4 HR WITH EFFECT
[2021-10-18 12:59] LABS: BASOPHILS # (AUTO) 0.1 K/uL (0.0-0.2); BASOPHILS % (AUTO) 0.3 % (0.0-2.0); EOSINOPHILS # (AUTO) 0.1 K/uL (0.0-0.4); EOSINOPHILS % (AUTO) 0.5 % (0.0-4.0); HEMATOCRIT 25.2 % (36-48); HEMOGLOBIN 8.3 g/dL (12.0-16.0); LYMPHOCYTES # (AUTO) 0.5 K/uL (1.0-5.5); LYMPHOCYTES % (AUTO) 2.6 % (20.5-51.5); MEAN CORPUSCULAR HEMOGLOBIN 29 pg (27-31); MEAN CORPUSCULAR HGB CONC 33 % (32-36); MEAN CORPUSCULAR VOLUME 87 fL (79.0-98.0); MONOCYTES # (AUTO) 0.4 K/uL (0.0-1.0); MONOCYTES % (AUTO) 2.3 % (1.7-9.3); NEUTROPHILS # (AUTO) 17.9 K/uL (1.8-7.7); NEUTROPHILS % (AUTO) 94.3 % (40.0-70.0); PLATELET COUNT (AUTO) 411 K/uL (130-430); RED BLOOD CELL COUNT(AUTO) 2.89 MIL/uL (4.2-6.2); RED CELL DISTRIBUTION WIDTH 15.4 % (9.0-15.0); WHITE BLOOD COUNT (AUTO) 18.9 K/uL (4.8-10.8)
[2021-10-18 13:26] LABS: CALCIUM 8.2 mg/dL (8.4-11.0); CREATININE 2.28 mg/dL (0.55-1.30); POTASSIUM 3.8 mmol/L (3.5-5.1)
--- NOTE | 2021-10-18 15:19 | NUR ---
DR VARGAS WAS CALLED R/T ABNORM WBC, H&H, RBC, NA, CL, BUN, CRET AND LACTIC ACID NEW ORDER GIVE WATER FLUSH 200ML Q4HR X 1 DAY AND REPEAT BUN IN THE AM
[2021-10-18] MEDS: 0.45% NACL 1,000 ML IV SCH (20:30)
[2021-10-19] VITALS (11 sets, daily range): BP systolic 93–119
[2021-10-19] MEDS: PROPOFOL DRIP 100 ML IV PRN (02:25)
[2021-10-19] MEDS: IPRATROPIUM/ALBUTEROL SULFATE 3 ML AMPUL.NEB (DUONEB) INH SCH ×6 (03:00→23:54)
[2021-10-19 07:32] LABS: BASOPHILS % (AUTO) 0.2 % (0.0-2.0); EOSINOPHILS # (AUTO) 0.2 K/uL (0.0-0.4); EOSINOPHILS % (AUTO) 0.8 % (0.0-4.0); HEMATOCRIT 25.7 % (36-48); HEMOGLOBIN 8.3 g/dL (12.0-16.0); LYMPHOCYTES # (AUTO) 1.3 K/uL (1.0-5.5); LYMPHOCYTES % (AUTO) 6.9 % (20.5-51.5); MEAN CORPUSCULAR HEMOGLOBIN 29 pg (27-31); MEAN CORPUSCULAR HGB CONC 32 % (32-36); MEAN CORPUSCULAR VOLUME 88 fL (79.0-98.0); MONOCYTES % (AUTO) 5.2 % (1.7-9.3); NEUTROPHILS # (AUTO) 16.4 K/uL (1.8-7.7); NEUTROPHILS % (AUTO) 86.9 % (40.0-70.0); PLATELET COUNT (AUTO) 453 K/uL (130-430); RED BLOOD CELL COUNT(AUTO) 2.91 MIL/uL (4.2-6.2); RED CELL DISTRIBUTION WIDTH 14.8 % (9.0-15.0); WHITE BLOOD COUNT (AUTO) 18.9 K/uL (4.8-10.8)
[2021-10-19 08:13] LABS: ALBUMIN 1.6 g/dL (3.4-4.8); CALCIUM 8.3 mg/dL (8.4-11.0); CREATININE 2.61 mg/dL (0.55-1.30); POTASSIUM 3.6 mmol/L (3.5-5.1); TOTAL BILIRUBIN 0.4 mg/dL (0.0-1.0)
[2021-10-19] MEDS: DEXAMETHASONE SOD PHOSPHATE 10 MG/ML VIAL IVP SCH (09:00)
[2021-10-20] VITALS (18 sets, daily range): BP systolic 108–154
[2021-10-20] MEDS: IPRATROPIUM/ALBUTEROL SULFATE 3 ML AMPUL.NEB (DUONEB) INH SCH ×6 (04:28→23:00)
--- NOTE | 2021-10-20 07:05 | NUR ---
Received report from cook night RN, and assumed patient care.
[2021-10-20 07:44] LABS: BASOPHILS # (AUTO) 0.1 K/uL (0.0-0.2); BASOPHILS % (AUTO) 0.5 % (0.0-2.0); EOSINOPHILS % (AUTO) 0.1 % (0.0-4.0); LYMPHOCYTES # (AUTO) 0.6 K/uL (1.0-5.5); LYMPHOCYTES % (AUTO) 5.5 % (20.5-51.5); MEAN CORPUSCULAR HEMOGLOBIN 28 pg (27-31); MEAN CORPUSCULAR HGB CONC 33 % (32-36); MEAN CORPUSCULAR VOLUME 87 fL (79.0-98.0); MONOCYTES # (AUTO) 0.5 K/uL (0.0-1.0); NEUTROPHILS # (AUTO) 10.3 K/uL (1.8-7.7); NEUTROPHILS % (AUTO) 89.9 % (40.0-70.0); PLATELET COUNT (AUTO) 399 K/uL (130-430); RED BLOOD CELL COUNT(AUTO) 2.27 MIL/uL (4.2-6.2); RED CELL DISTRIBUTION WIDTH 14.6 % (9.0-15.0); WHITE BLOOD COUNT (AUTO) 11.5 K/uL (4.8-10.8)
[2021-10-20 08:26] LABS: ALBUMIN 1.4 g/dL (3.4-4.8); CALCIUM 7.8 mg/dL (8.4-11.0); CREATININE 3.18 mg/dL (0.55-1.30); POTASSIUM 3.6 mmol/L (3.5-5.1); TOTAL BILIRUBIN 0.3 mg/dL (0.0-1.0)
[2021-10-20] MEDS: PROPOFOL DRIP 100 ML IV PRN ×2 (08:41→15:58)
[2021-10-20] MEDS: cefTRIAXone 1 GM in D5W 50 ML IV SCH ×2 (09:00→10:02)
[2021-10-20] MEDS: ENOXAPARIN SODIUM 60 MG/0.6 ML SYRINGE SUBCUT SCH ×2 (09:00→10:02)
[2021-10-20] MEDS: PANTOPRAZOLE SODIUM 40 MG/VIAL (PROTONIX) IVP SCH ×2 (09:00→10:02)
--- NOTE | 2021-10-20 09:07 | NUR ---
Received critical lab value of Hgb: 6.4 & Hct: 19.8. Will inform primary MD of the critical values.
[2021-10-20 09:08] LABS: HEMATOCRIT 19.8 % (36-48); HEMOGLOBIN 6.4 g/dL (12.0-16.0)
--- NOTE | 2021-10-20 09:24 | NUR ---
Spoke to Dr. Will MD is informed about the critical values of Hgb: 6.4 & Hct: 19.8. MD ordered 2 units of PRBCs, and a redraw of H&H after two units of blood has been given. No additional orders noted at the moment, will reinforce if needed throughout the shift.
[2021-10-20] MEDS: BALSAM PERU/CASTOR OIL 56.7 GM OINT...G. TP SCH (10:03)
--- NOTE | 2021-10-20 11:48 | NUR ---
Received critical lab value of HC03 of 15.5, Dr. Lima is aware of the findings and will wait for orders to be placed on [facility].
[2021-10-20] MEDS ORDERED: SODIUM BICARBONATE 8.4% JECT 50 MEQ/50 ML SYRINGE IVP ONE ×2 (12:15→14:45)
--- NOTE | 2021-10-20 12:45 | NUR ---
CONSULTATION PAGED PRIORITY: ROUTINE REASON FOR CONSULTATION?:RENAL FAILURE WAS CONSULT CALLED:Y PERSON WHO WAS NOTIFIED:JOLANTA CONSULTING PHYSICIAN:IMER CARRION FIRE PREVENTION CHIEF SPECIALTYNEPHRO FIRE PREVENTION CHIEF PHONE NUMBER:[phone] REQUESTINB PHYSICIAN:FERN DECKER
[2021-10-20] MEDS: DEXAMETHASONE SOD PHOSPHATE 10 MG/ML VIAL IVP SCH (12:47)
[2021-10-20] MEDS: 0.45% NACL 1,000 ML IV SCH (13:33)
--- NOTE | 2021-10-20 15:30 | NUR ---
Blood transfusion started, patient's vital signs are within patient's range (please see blood transfusion sheet for further details). No other complications noted at the moment, will reinforce if needed throughout the shift.
--- NOTE | 2021-10-20 16:30 | NUR ---
Stopped patient's blood transfusion due to patient's heart rate in the 120-130s, and saturating in the 70-80%. RT at bedside (Eboni) is aware of the situation, called primary MD and spoke to Dr. Solis of the current situation about the transfusion reaction. Ordered to give benadryl 50mg IVP now and tylenol 650mg via peg tube now, and continue to monitor throughout the shift. MD is aware of patient saturating in the 70-80% with FIO2 of 100%, no additional orders noted at the moment. Will reinforce if needed throughout the shift.
[2021-10-20] MEDS ORDERED: DIPHENHYDRAMINE INJ 50 MG/ML VIAL ONE (16:38)
[2021-10-20] MEDS ORDERED: ACETAMINOPHEN 325 MG TABLET ONE (16:43)
--- NOTE | 2021-10-20 16:50 | NUR ---
Brought patient's blood transfusion bag and iv tubing back to laboratory.
[2021-10-20] MEDS: LORazepam 2 MG/ML VIAL IVP PRN (17:05)
--- NOTE | 2021-10-20 17:23 | NUR ---
Received lab values of most recent abgs, and Dr. Solis is aware of the current findings. No orders noted at the moment, will reinforce if needed throughout the shift.
--- NOTE | 2021-10-20 18:00 | NUR ---
Patient is still saturating in the 80%s, and tachy in the 120s. tree doctor is aware of the situation and left a message to Dr. Solis but no answer, will reinforce if needed throughout the shift. Patient is on 100% FiO2, and patient does not show any signs of grimacing provided therapeutic alleviation with turning patient over to side, and still shows 120s for HR and saturation of 80s%. Will let Dr. Solis aware and call back again via pager. No new orders noted at the moment.
--- NOTE | 2021-10-20 18:45 | NUR ---
Dr. Solis has not called back, will let fast food shift lead nurse know about the current situation and the occurences of the patient regarding elevated HR and saturation of 80%s. No new orders noted at the moment.
[2021-10-20 19:40] LABS: COLOR,URINE YELLOW (YELLOW)
[2021-10-20 19:41] LABS: BILIRUBIN,URINE NEGATIVE (NEGATIVE); BLOOD, URINE 2+ (NEGATIVE); CLARITY/URINE CLOUDY (CLEAR); GLUCOSE,URINE NEGATIVE (NEGATIVE); KETONES,URINE NEGATIVE (NEGATIVE); LEUKOCYTE ESTERASE ,URINE NEGATIVE (NEGATIVE); NITRITE, URINE NEGATIVE (NEGATIVE); PROTEIN URINE 3+ (NEGATIVE); UROBILINOGEN,URINE 0.2 (0.2-1.0)
[2021-10-20 19:47] LABS: BACTERIA,URINE FEW /HPF (None Seen); WBC,URINE 0-3 /HPF (0-3)
[2021-10-20 19:48] LABS: MUCUS,URINE None Seen /LPF (None Seen); URINE AMORPHOUS URATE 3+ /HPF (None Seen)
--- NOTE | 2021-10-20 20:00 | NUR ---
received patient semi comatos responding to no kind of stimuis . vital are WNL at this timept hspas anasarcawith the abdmen very ditended. diprovan with ivf of 1/nsinfusing voia midlime. 2400pt condition remains the same.hypernvvenvetilating at time. patient has trach connected to vent at ordered settings.. Shortafter 00g00 Ifoundpt desaterating in the 70s with agonicbreathing. the Icall for rapid respons then pt B/P WENT TO 55/22,.Dr Fitzpatrick is called wirh the order to albumine 25 PER CENT 200ML.. AROUND 0635 CODED CPR WITH ACLS STATED. but pt expied and pronouned at 0704by the er .THE INCOMING rn
[2021-10-21] MEDS ORDERED: ALBUMIN HUMAN 25% 200 ML IV ONE (06:59)
--- NOTE | 2021-10-21 09:22 | NUR ---
MAGDY TEAGUE'S PATIENT DR. VARGAS PERSON NOTIFIED DR. VARGAS DIALED [phone] PERSON [address] SUZAN GUPTA PERSON NOTIFIED SOLIDAD DIALED [phone] NETTE ARTEAGA PERSON NOTIFIED YONI DIALED [phone]
== END 2021-10-21 07:04 | DRG 720 ==
LOC: SED 12:18 → SIC 14:58
PROVIDERS: ADMIT Internal Medicine; ATTEND Internal Medicine
PROC: 5A1955Z Respiratory Ventilation, Greater than 96 Consecutive Hours (ICD-10-PCS; principal; 2021-10-11)
PROC: 30233N1 Transfusion of Nonautologous Red Blood Cells into Peripheral Vein, Percutaneous Approach (ICD-10-PCS; 2021-10-14)
DX: A41.9 Sepsis, unspecified organism (principal); I46.9 Cardiac arrest, cause unspecified; J12.82 Pneumonia due to coronavirus disease 2019; J80 Acute respiratory distress syndrome; G82.50 Quadriplegia, unspecified; U07.1 COVID-19; E43 Unspecified severe protein-calorie malnutrition; G93.41 Metabolic encephalopathy; E87.2 Acidosis; G93.1 Anoxic brain damage, not elsewhere classified; I13.0 Hypertensive heart and chronic kidney disease with heart failure and stage 1 through stage 4 chronic kidney disease, or unspecified chronic kidney disease; D63.8 Anemia in other chronic diseases classified elsewhere; R65.20 Severe sepsis without septic shock; I50.9 Heart failure, unspecified; N17.9 Acute kidney failure, unspecified; N18.9 Chronic kidney disease, unspecified; G40.909 Epilepsy, unspecified, not intractable, without status epilepticus; I25.10 Atherosclerotic heart disease of native coronary artery without angina pectoris; Z93.0 Tracheostomy status; Z99.11 Dependence on respirator [ventilator] status; Z93.1 Gastrostomy status; Z87.891 Personal history of nicotine dependence; Z86.73 Personal history of transient ischemic attack (TIA), and cerebral infarction without residual deficits
CPT/HCPCS: 36415; 36430; 36600; 71045; 71275; 76376; 76770; 80048; 80053; 80202; 81000; 82043; 82570; 82803-TC; 82962; 83605; 83735; 83880; 84100; 84443; 85025; 85379; 86140; 86886; 86900; 86901; 86920; 87040; 87070-TC; 87081; 87086; 87205-TC; 93005; 94002; 94003; 94640; 94760; 96365; 96368; 99291; C9113; J0696; J1100; J1200; J1650; J1885; J1940; J1956; J2060; J2543; J2704; J3370; J3480; J3490; J7050; J7060; P9021; P9046; Q9967; U0003